=== PATIENT | female | born 1955 | race Caucasian/White ===

== ENCOUNTER 2018-07-08 10:30 | Observation (INO) ==
--- NOTE | 2018-07-08 10:58 | DR.CP ---
HPI Time Seen Time Seen by Provider: 07/08/18 10:56 PCP Primary Care Physician: SIA MARCH Complaint Chief Complaint:: PT C/O HAVING SOME INDIGESTION THAT STARTED LAST NIGHT AND THAT SHE CALLED HER PRIMARY MD AND THEY TOLD HER TO COME TO THE ER, PT C/O HAVING SOME SUBSTERNAL DULL CHEST PAIN ABOUT A ( 2 ) ON PAIN SCALE , PT HAS NO HX OF CARDIAC HX ,,BR Source History Provided: Patient Mode of Arrival Mode of Arrival: Ambulatory Timing Onset of Chief Complaint: 07/07/18 PMH PMH Past Medical History: Yes Past Medical History: Diabetes and Hypertension Past Medical History Comment: THYROID , BREAST Past Surgical History: Yes Surgical History: Hysterectomy and Thyroidectomy Past Surgical History Comment: DEVIATED SEPTUM, LUMPECTOMY Family History History of Family Medical Conditions: Yes Family Medical History: Diabetes Mellitus, Cancer, DC, Coronary Artery Disease and Hypertension Social History Does patient currently use any type of tobacco product: No Have you used tobacco products in the last 12 months: No Type of Tobacco Use: None Does any household member use tobacco: No Alcohol Use: None Do you use any recreational Drugs:: No Lives With: Spouse Lives Where: Home infectious screening In the last 2 months have you had wt loss of >10#?: NO Have you had fever, night sweats or hemotysis?: No Have you traveled outside the country in the last 6 months?: No Isolation: Standard PE Vitals Vitals: Temperature 98.0 F Pulse Rate 87 Respiratory Rate 22 Blood Pressure [Left Arm] 124/66 Blood Pressure 147/78 O2 Sat by Pulse Oximetry 99 ROR Labs Reviewed Result Diagrams: 07/08/18 11:00 07/08/18 11:00 Laboratory: WBC 5.7 X10^3/uL (3.6-10.0) 07/08/18 11:00 RBC 4.55 X10^6/uL (3.5-5.4) 07/08/18 11:00 Hgb 13.5 g/dL (12.0-16.0) 07/08/18 11:00 Hct 40.3 % (36.0-47.0) 07/08/18 11:00 MCV 88.5 fL (80.0-100.0) 07/08/18 11:00 MCH 29.6 pg (27.0-34.0) 07/08/18 11:00 MCHC 33.4 g/dL (33.0-35.0) 07/08/18 11:00 RDW 13.4 % (11.6-16.5) 07/08/18 11:00 Plt Count 255 X10^3/uL (150.0-450.0) 07/08/18 11:00 MPV 7.3 fL (7.4-11.0) L 07/08/18 11:00 Neut % (Auto) 59.8 % (42.0-75.0) 07/08/18 11:00 Lymph % (Auto) 31.1 % (21.0-51.0) 07/08/18 11:00 Dickson % (Auto) 6.6 % (0.0-13.0) 07/08/18 11:00 Eos % (Auto) 2.0 % (0.9-2.9) 07/08/18 11:00 Baso % (Auto) 0.5 % (0.2-1.0) 07/08/18 11:00 Neut # (Auto) 3.4 x10^3/uL (2.2-4.8) 07/08/18 11:00 Lymph # (Auto) 1.8 X10^3/uL (1.3-2.9) 07/08/18 11:00 Dickson # (Auto) 0.4 x10^3/uL (0.3-0.8) 07/08/18 11:00 Eos # (Auto) 0.1 x10^3/uL (0.0-0.2) 07/08/18 11:00 Baso # (Auto) 0.0 X10^3/uL (0.0-0.1) 07/08/18 11:00 Absolute Nucleated RBC 0.0 /100WBC 07/08/18 11:00 INR Target Range - 07/08/18 11:00 INR 0.94 (0.8-1.3) 07/08/18 11:00 APTT 27.2 SECONDS (22.9-36.5) 07/08/18 11:00 PTT Comment - 07/08/18 11:00 Sodium 139 mmol/L (136-145) 07/08/18 11:00 Corrected Sodium 141 mmol/L (136-145) 07/08/18 11:00 Potassium 4.2 mmol/L (3.5-5.1) 07/08/18 11:00 Chloride 102 mmol/L (98-107) 07/08/18 11:00 Carbon Dioxide 27.7 mmol/L (21-32) 07/08/18 11:00 BUN 20 mg/dL (7-18) H 07/08/18 11:00 Creatinine 0.75 mg/dL (0.55-1.02) 07/08/18 11:00 Est GFR (MDRD) Af Amer > 60 (>60) 07/08/18 11:00 Est GFR (MDRD) Non-Af > 60 (>60) 07/08/18 11:00 Glucose 195 mg/dL (65-99) H 07/08/18 11:00 Calcium 10.1 mg/dL (8.5-10.1) 07/08/18 11:00 Corrected Calcium TNP 07/08/18 11:00 Magnesium 1.8 mg/dL (1.7-2.9) 07/08/18 11:00 Total Bilirubin 0.60 mg/dL (0.2-1.0) 07/08/18 11:00 AST 29 Units/L (15-37) 07/08/18 11:00 ALT 68 Units/L (12-78) 07/08/18 11:00 Alkaline Phosphatase 82 Units/L (46-116) 07/08/18 11:00 Creatine Kinase 92 Units/L (26-192) 07/08/18 11:00 CK-MB (CK-2) 1.1 ng/mL (0-4.0) 07/08/18 11:00 CK/CKMB % Calc 1.2 % (<4) 07/08/18 11:00 Troponin I < 0.02 ng/mL (0-1.5) 07/08/18 11:00 Total Protein 7.9 g/dL (6.4-8.2) 07/08/18 11:00 Albumin 3.8 g/dL (3.4-5.0) 07/08/18 11:00 Globulin 4.1 g/dL (2.5-4.5) 07/08/18 11:00 Albumin/Globulin Ratio 0.9 Ratio (1.1-2.1) L 07/08/18 11:00
[2018-07-08 11:17] LABS: BASOPHILS % (AUTO) 0.5 % (0.2-1.0); EOSINOPHILS # (AUTO) 0.1 x10^3/uL (0.0-0.2); HEMATOCRIT 40.3 % (36.0-47.0); HEMOGLOBIN 13.5 g/dL (12.0-16.0); LYMPHOCYTES # (AUTO) 1.8 X10^3/uL (1.3-2.9); LYMPHOCYTES % (AUTO) 31.1 % (21.0-51.0); MEAN CORPUSCULAR HEMOGLOBIN 29.6 pg (27.0-34.0); MEAN CORPUSCULAR HGB CONC 33.4 g/dL (33.0-35.0); MEAN CORPUSCULAR VOLUME 88.5 fL (80.0-100.0); MEAN PLATELET VOLUME 7.3 fL (7.4-11.0); MONOCYTES # (AUTO) 0.4 x10^3/uL (0.3-0.8); MONOCYTES % (AUTO) 6.6 % (0.0-13.0); NEUTROPHILS # (AUTO) 3.4 x10^3/uL (2.2-4.8); NEUTROPHILS % (AUTO) 59.8 % (42.0-75.0); PLATELET COUNT 255 X10^3/uL (150.0-450.0); RED BLOOD COUNT 4.55 X10^6/uL (3.5-5.4); RED CELL DISTRIBUTION WIDTH 13.4 % (11.6-16.5); WHITE BLOOD COUNT 5.7 X10^3/uL (3.6-10.0)
--- NOTE | 2018-07-08 11:25 | RAD ---
HISTORY: Chest pain. Study: Portable chest. Comparison: None. Findings: The trachea is midline. The cardiac silhouette is unremarkable. No obvious focal consolidation, pleural effusion, or pneumothorax. The bony thorax is unremarkable. Surgical clips overlying the left axilla. IMPRESSION: No acute cardiopulmonary disease. Reported By:
[2018-07-08 11:29] LABS: BLOOD UREA NITROGEN 20 mg/dL (7-18); CALCIUM 10.1 mg/dL (8.5-10.1); CARBON DIOXIDE 27.7 mmol/L (21-32); CHLORIDE 102 mmol/L (98-107); COR NA(FOR HYPERGLY) 141 mmol/L (136-145); CREATININE 0.75 mg/dL (0.55-1.02); SODIUM 139 mmol/L (136-145); TROPONIN I < 0.02 ng/mL (0-1.5); eGFR NON BLACK RACES > 60 (>60)
[2018-07-08 11:33] LABS: ALANINE AMINOTRANSFERASE 68 Units/L (12-78); ALBUMIN 3.8 g/dL (3.4-5.0); ALKALINE PHOSPHATASE 82 Units/L (46-116); ASPARTATE AMINO TRANSFERASE 29 Units/L (15-37); CKMB % 1.2 % (<4); CREATINE KINASE 92 Units/L (26-192); CREATINE KINASE MB 1.1 ng/mL (0-4.0); MAGNESIUM 1.8 mg/dL (1.7-2.9); TOTAL PROTEIN 7.9 g/dL (6.4-8.2)
[2018-07-08] MEDS ORDERED: NITROSTAT SL ONE (13:04)
[2018-07-08] MEDS ORDERED: NITROSTAT SL PRN (13:25)
[2018-07-08] MEDS ORDERED: PEPCID 20 MG IV PREMIX* 20 MG/50 ML BAG IV ONE ×2 (13:26→14:00)
[2018-07-08] MEDS: NS 1000 ML 1,000 ML IV SCH (15:41)
[2018-07-08 16:07] VITALS: BMI 31.9
[2018-07-08 18:09] LABS: BILIRUBIN,URINE NEGATIVE (NEGATIVE); BLOOD/HEMOGLOBIN,URINE NEGATIVE (NEGATIVE); GLUCOSE, URINE NEGATIVE (NEGATIVE); KETONES,URINE NEGATIVE (NEGATIVE); LEUKOCYTE ESTERASE ,URINE 1+ (NEGATIVE); NITRITES,URINE NEGATIVE (NEGATIVE); PROTEIN,URINE NEGATIVE (NEGATIVE); UROBILINOGEN,URINE NORMAL (NORMAL)
[2018-07-08 18:28] LABS: APPEARANCE,URINE CLEAR (CLEAR); COLOR,URINE YELLOW (YELLOW); RBC,URINE 0-2 /HPF (NONE SEEN)
[2018-07-08 18:29] LABS: BACTERIA,URINE TRACE /HPF (NEGATIVE); SQUAMOUS EPITHELIAL CELL,UR MODERATE /HPF (NEGATIVE)
[2018-07-08 18:52] LABS: CKMB % 1.2 % (<4); CREATINE KINASE 83 Units/L (26-192); TROPONIN I < 0.02 ng/mL (0-1.5)
[2018-07-08] MEDS ORDERED: TYLENOL 325 MG TAB PO PRN (23:19)
[2018-07-08 23:20] LABS: CKMB % 1.4 % (<4); CREATINE KINASE 73 Units/L (26-192); CREATINE KINASE MB < 1.0 ng/mL (0-4.0); TROPONIN I < 0.02 ng/mL (0-1.5)
[2018-07-08] MEDS: HumuLIN R SUBCUT PRN (23:40)
[2018-07-09 05:38] LABS: BASOPHILS % (AUTO) 0.5 % (0.2-1.0); EOSINOPHILS # (AUTO) 0.2 x10^3/uL (0.0-0.2); EOSINOPHILS % (AUTO) 3.8 % (0.9-2.9); HEMATOCRIT 37.2 % (36.0-47.0); HEMOGLOBIN 12.4 g/dL (12.0-16.0); LYMPHOCYTES # (AUTO) 2.3 X10^3/uL (1.3-2.9); MEAN CORPUSCULAR HEMOGLOBIN 29.5 pg (27.0-34.0); MEAN CORPUSCULAR HGB CONC 33.4 g/dL (33.0-35.0); MEAN CORPUSCULAR VOLUME 88.3 fL (80.0-100.0); MEAN PLATELET VOLUME 7.2 fL (7.4-11.0); MONOCYTES # (AUTO) 0.6 x10^3/uL (0.3-0.8); MONOCYTES % (AUTO) 9.5 % (0.0-13.0); NEUTROPHILS # (AUTO) 3.3 x10^3/uL (2.2-4.8); NEUTROPHILS % (AUTO) 51.2 % (42.0-75.0); PLATELET COUNT 251 X10^3/uL (150.0-450.0); RED BLOOD COUNT 4.21 X10^6/uL (3.5-5.4); RED CELL DISTRIBUTION WIDTH 13.1 % (11.6-16.5); WHITE BLOOD COUNT 6.4 X10^3/uL (3.6-10.0)
[2018-07-09] MEDS: NS 1000 ML 1,000 ML IV SCH (05:44)
[2018-07-09 05:56] LABS: ALANINE AMINOTRANSFERASE 54 Units/L (12-78); ALBUMIN 3.2 g/dL (3.4-5.0); ALKALINE PHOSPHATASE 70 Units/L (46-116); ASPARTATE AMINO TRANSFERASE 24 Units/L (15-37); BLOOD UREA NITROGEN 24 mg/dL (7-18); CALCIUM 8.8 mg/dL (8.5-10.1); CARBON DIOXIDE 25.6 mmol/L (21-32); CHLORIDE 104 mmol/L (98-107); CHOL/HDL RATIO 3.4 (0.0-5.0); CHOLESTEROL 203 mg/dL (0-200); COR CA(FOR HYPOALB) 9.4 mg/dL (8.5-10.1); COR NA(FOR HYPERGLY) 142 mmol/L (136-145); CREATININE 0.84 mg/dL (0.55-1.02); HDL CHOLESTEROL 60 mg/dL (40-60); MAGNESIUM 1.7 mg/dL (1.7-2.9); SODIUM 140 mmol/L (136-145); TOTAL PROTEIN 6.9 g/dL (6.4-8.2); TRIGLYCERIDES 150 mg/dL (0-150); eGFR NON BLACK RACES > 60 (>60)
[2018-07-09] MEDS ORDERED: SYNTHROID 112 mcg TAB PO SCH (07:30)
[2018-07-09] MEDS ORDERED: GLUCOPHAGE XR PO SCH (09:00)
[2018-07-09] MEDS ORDERED: JANUVIA PO SCH (09:00)
[2018-07-09] MEDS ORDERED: COZAAR PO SCH (09:00)
[2018-07-09] MEDS ORDERED: ASPIRIN PO SCH (09:00)
[2018-07-09 10:31] VITALS: BP 126/67
[2018-07-09] MEDS: HumuLIN R SUBCUT PRN (11:13)
[2018-07-09] MEDS ORDERED: SNACK - Diabetic Appropriate PO SCH (20:00)
--- NOTE | 2018-07-21 19:53 | DR.CARTERS ---
Short Stay Summary - Admission Date Date of Admission: 07/08/18 - Discharge Date Discharge Date: 07/09/18 - Admission Diagnoses (1) Chest pain, rule out acute myocardial infarction Status: Acute - Hospital Course Hospital Course: IS A 62 YEAR OLD PATIENT OF WHO PRESENTED TO THE EMERGENCY ROOM WITH COMPLAINTS OF INDIGESTION AND SUBSTERNAL CHEST PAIN. SHE REPORTED THAT SYMPTOMS STARTED YESTERDAY. ON ARRIVAL, SHE RATED THE PAIN A 2/10. ON ARRIVAL, VITALS WERE 98.0-87-20-99%-173/74. LABS WERE OBTAINED. ABNORMAL LAB VALUES INCLUDE THE FOLLOWING: BUN 20, GLUCOSE 195. CARDIAC ENZYMES WITHIN NORMAL LIMITS. CHEST XRAY OBTAINED AND REVEALED NO ACUTE CARDIOPULMONARY DISEASE. EKG REVEALED: SINUS RHYTHM WITH HR 77. SHE WAS GIVEN PEPCID 20MG IV X 1 DOSE AND STARTED ON NORMAL SALINE AT 30ML/HR. SHE WAS ADMITTED FOR FURTHER EVALUATION AND TREATMENT OF CHEST PAIN, RULE OUT ACUTE VT. WE PLANNED TO OBTAIN SERIAL CARDIAC ENZYMES AND EKGS WELL FOLLOW UP WITH AM LABS AND CONTINUE TO MONITOR. ON THE MORNING FOLLOWING ADMISSION, PATIENT IS ALERT AND ORIENTED AND REPORTS FEELING WELL. SHE DENIES CHEST PAIN OR INDIGESTION THIS MORNING. HER VITALS THIS MORNING ARE 98.1-82-20-100%-126/67. CARDIAC ENZYMES AND EKGS WITHIN NORMAL LIMITS. CHOLESTEROL NOTED TO BE 203, LDL 113. NO CHANGES NOTED TO EKS. WE PLANNED FOR DISCHARGE. INSTRUCTIONS FOR MEDICATIONS AND FOLLOW UP WERE DISCUSSED WITH PATIENT AND FAMILY. THEY VERBALIZED UNDERSTANDING. SHE WAS DISCHARGED ON ASPIRIN 325MG PO DAILY AND ROSUVASTATIN 10MG PO HS. SHE WAS ALSO INSTRUCTED TO CONTINUE HER PREVIOUSLY PRESCRIBED MEDICATIONS. SHE WAS INSTRUCTED TO FOLLOW UP WITH HER DOCTOR IN 1 WEEK. PATIENT WAS DISCHARGED HOME IN STABLE CONDITION. - Discharge Medications Discharge Medications: Home Medication List levothyroxine 112 mg PO DAILY 07/08/18 [History] losartan 100 mg PO DAILY 07/08/18 [History] sitagliptin-metformin 1 tab PO DAILY 07/08/18 [History] aspirin [Ecotrin] 325 mg PO QDAY #100 tab 07/09/18 [Rx] rosuvastatin [Crestor] 10 mg PO HS #30 tab 07/09/18 [Rx] Prescriptions: aspirin [Ecotrin] Hans Cardozo rosuvastatin [Crestor] Hans Cardozo - Discharge Plan Disposition: HOME, SELF-CARE Condition: Stable Prescriptions: aspirin [Ecotrin] 325 mg PO QDAY #100 tab rosuvastatin [Crestor] 10 mg PO HS #30 tab - Follow up/Referrals Follow up/Referrals: [facility] [Other] - 1 WEEK SIA URBAN V [Primary Care Provider] - 07/16/18 9:00 am - Instructions Instructions: Nonspecific Chest Pain, [id number], Diabetes Mellitus and Nutrition Additional Instructions: DIET TOLERATED. ACTIVITY TOLERATED. FOLLOW UP WITH [facility] [place] faxed info and will contact patient with appt date and time. Forms: Patient Portal
== END 2018-07-09 11:55 | disposition home or self-care (01) ==
LOC: MED/SURG 10:32 → ER 10:32 → MED/SURG 14:33
PROVIDERS: ADMIT Internal Medicine; ATTEND Internal Medicine
CPT/HCPCS: 36415; 71010; 71045; 80053; 80061; 81001; 82550; 82553; 83735; 84484; 85025; 85378; 85610; 85730; 93005; 94760; 96365; 96367; 96372; 96374; 99282; 99284; A4216; A4222; S0028; G0378; J1815; J3490; J7030